=== PATIENT | female | born 1950 | race Caucasian/White ===

== ENCOUNTER → 2023-01-28 | Outpatient (CLI) | payer MEDICARE ==
--- NOTE | 2023-01-28 13:24 | MM ---
Reason for Exam: Follow-up at short interval from prior study. Last screening mammogram was performed 6 month(s) ago. Patient History: Menarche at age 13. First Full-Term at age 27. Postmenopausal. Paternal grandmother had breast cancer under age 50. Risk Values: Paola 5 year model risk: 1.9%. NCI Lifetime model risk: 5.4%. Prior Study Comparison: 03/02/2016 Bilateral MG screening mammo w CAD - 2, [facility]. 07/11/2022 Bilateral MG 3D screening mammo w/cad, [facility]. Tissue Density: Left: There are scattered fibroglandular densities. Findings: Analyzed By CAD. No suspicious finding in the area of abnormality in the left breast cc view posterior medial aspect. No new suspicious masses, calcifications or distortions. Overall Assessment: Benign, BI-RAD 2 Management: Screening Mammogram of both breasts in 1 year. Results were given to the patient verbally at the time of exam. Patient should continue monthly self-breast exams. A clinical breast exam by your physician is recommended on an annual basis. This exam should not preclude additional follow-up of suspicious palpable abnormalities. Note on Paola scores and lifetime risk: 1. A Paola score greater than 3% is considered moderate risk. If this is the case, consider specialist referral to assess eligibility for a risk reducing agent. 2. If overall lifetime risk for the development of breast cancer is 20% or higher, the patient may qualify for future screening with alternating mammogram and breast MRI. Electronically signed and approved by: Navi Weaver DO
== END | disposition home or self-care (01) ==
LOC: RADMAMWWP 12:47
PROVIDERS: ATTEND Family Medicine
DX: R92.8 Other abnormal and inconclusive findings on diagnostic imaging of breast (principal); Z78.0 Asymptomatic menopausal state; Z80.3 Family history of malignant neoplasm of breast
CPT/HCPCS: 77061; 77065

== ENCOUNTER → 2023-07-16 | Outpatient (CLI) | payer MEDICARE ==
--- NOTE | 2023-07-17 18:40 | MM ---
Reason for Exam: Screening (asymptomatic). Last screening mammogram was performed 12 month(s) ago. Patient History: Menarche at age 13. First Full-Term at age 27. Postmenopausal. Paternal grandmother had breast cancer under age 50. Risk Values: Paola 5 year model risk: 2.0%. NCI Lifetime model risk: 5.1%. Prior Study Comparison: 03/02/2016 Bilateral MG screening mammo w CAD - 2, [facility]. 07/11/2022 Bilateral MG 3D screening mammo w/cad, [facility]. 01/28/2023 Left MG 3D diag mammo w/cad , [facility]. Tissue Density: There are scattered areas of fibroglandular density. Findings: Analyzed By CAD. There is no suspicious group of microcalcifications or new suspicious mass in either breast. Overall Assessment: Negative, BI-RAD 1 Management: Screening Mammogram of both breasts in 1 year. . Patient should continue monthly self-breast exams. A clinical breast exam by your physician is recommended on an annual basis. This exam should not preclude additional follow-up of suspicious palpable abnormalities. Note on Paola scores and lifetime risk: 1. A Paola score greater than 3% is considered moderate risk. If this is the case, consider specialist referral to assess eligibility for a risk reducing agent. 2. If overall lifetime risk for the development of breast cancer is 20% or higher, the patient may qualify for future screening with alternating mammogram and breast MRI. Electronically signed and approved by: Floyd Anton M.D. Radiologist
== END | disposition home or self-care (01) ==
LOC: RADMAMWWP 13:33
PROVIDERS: ATTEND Family Medicine
DX: Z12.31 Encounter for screening mammogram for malignant neoplasm of breast (principal); Z80.3 Family history of malignant neoplasm of breast; Z78.0 Asymptomatic menopausal state
CPT/HCPCS: 77063; 77067

== ENCOUNTER 2024-01-07 19:33 | Outpatient (CLI) | payer MEDICARE ==
--- NOTE | 2024-01-26 10:28 | P.PCN ---
Date of Procedure: 01/07/24 Operative Findings: Polysomnography report Date of service is 01/07/2024 History A 74-year-old female patient, referred to me for sleep apnea evaluation. The patient has snoring and limited hypersomnia with an [employer] score of 9. 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 She is obese and her body mass index is 45.7. No recent weight gain. She has a Mallampati class IV. Pertinent physical findings weight is 237 and the body mass index is 45.7 Technical description The patient was studied using a standard complex polysomnography protocol that included recording of the Lead II EKG, Central, occipital and frontal EEG, right and left outer canthus EOG, submental EMG, right and left anterior tibialis EMG, respiratory airflow by thermocouple and or pressure/flow transducer, respiratory efforts by abdominal and thoracic PVDF belts, oxygen saturation by cable oximetry. Position by observation synchronized the PSG. Equipment used: Electrolytic Ozone. Sleep characteristics The total recording duration was 373 minutes. The total sleep time was 274.5 minutes. The overall sleep efficiency was 73.6%. Latency to sleep onset was 57 minutes. The latency to REM sleep was 72 minutes. The sleep architecture was characterized by 5.5% stage I, 78.5% stage II, 11.1% stage III, 8.2% REM sleep. Sleep continuity summary The patient had a total of 27 arousals with an index of 5.9. The total number of arousals related to respiratory events was 8 with an index of 1.7. Periodic limb movement summary No significant periodic limb movements was identified Cardiac summary The average heart rate was 72 with a minimum heart rate of 53 and a maximum heart rate of 108 and the rhythm was sinus Respiratory summary The sleep study showed a total of 0 obstructive apneas and 45 obstructive hypopneas with an AHI of 9.8. Noted the patient's respiratory events predominantly occurred during REM sleep. AHI during REM was 29.3. Oxygenation analysis The patient encountered oxygen desaturations with the lowest pulse ox of 70% and the patient spent approximately 33 minutes of sleep time below pulse ox of 85% The oxygen saturations were occurring predominantly during REM sleep. Assessment Mild obstructive sleep apnea with an AHI of 9.8, worse during REM sleep with an AHI of 29 during REM Mild nocturnal oxygen desaturations Limited hypersomnia with an [employer] score of 9 Morbid obesity with a BMI of 45 Plan This is a case of mild obstructive sleep apnea. The various treatment options will be discussed with the patient. Obviously, the patient would benefit from losing weight, sleeping on her side and keeping the head of the bed elevated. Will discuss the potential of an oral appliance versus CPAP therapy in addition with the patient and will make recommendations accordingly. The patient will see me in the office and follow-up will make recommendations on the available treatment options. Fortunately, the patient is not much affected from her sleep apnea. No cardiovascular complications. No major hypersomnia or sleepiness that is affecting the patient's daytime functionality.
== END 2024-01-08 05:20 | disposition home or self-care (01) ==
LOC: 3 N SLEEP 19:33
PROVIDERS: ATTEND Internal Medicine Critical Care Medicine
CPT/HCPCS: 95810